=== PATIENT | female | born 1985 | race African-American/Black ===

== ENCOUNTER 2016-10-06 13:24 | Emergency (ER) | payer OTHER ==
[2016-10-06 13:30] VITALS: BP 145/82; BMI 42.0
--- NOTE | 2016-10-06 15:33 | DR.GENAD ---
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 She also states that she has a toothache on the right lower side. Chief Complaint:: HEADACHE WITH DIZZINESS NOTED WHILE AT WORK. Self Treatment fo Chief Complaint: GET TEETH PULLED ON FRIDAY AND IT MAKES MY HEAD HURT. I HAVE A COLD ALSO. - Source History Provided: Patient - Mode of Arrival Mode of Arrival: Ambulatory - Timing Onset of Chief Complaint: 10/06/16 PMH - PMH Past Medical History: Yes Past Medical History: Anxiety Past Surgical History: Yes Surgical History: - Family History History of Family Medical Conditions: No Family Medical History: Diabetes Mellitus, Hypertension - Social History Type of Tobacco Use: Cigarettes Does any household member use tobacco: No Alcohol Use: None Do you use any recreational Drugs:: No Lives With: Family Lives Where: Home - infectious screening In the last 2 months have you had wt loss of >10#?: NO Have you had fever, night sweats or hemotysis?: No Have you traveled outside the country in the last 6 months?: No Isolation: Standard ROS - Review of Systems Eyes: No Symptoms Reported ENTM: No Symptoms Reported Respiratoy: No Symptoms Reported Cardiovascular: No Symptoms Reported Gastrointestinal/Abdominal: No Symptoms Reported Genitourinary: No Symptoms Reported Neurological: No Symptoms Reported Musculoskeletal: No Symptoms Reported Integumentary: No Symptoms Reported Hematologic/Lymphatic: No Symptoms Reported Endocrine: No Symptoms Reported Psychiatric: No Symptoms Reported All Other Systems: Reviewed and Negative PE - Vital Signs Vitals: Temperature 98 F Pulse Rate 101 Respiratory Rate 20 Blood Pressure [Left Arm] 148/74 Blood Pressure 145/82 O2 Sat by Pulse Oximetry 95 - General Limitations: No Limitations General Appearance: Alert, In No Apparent Distress - Head Head Exam: Normal Inspection, Atraumatic - Eyes Eye exam: Normal Appearance, PERRL, EOMI - ENT ENT Exam: Normal Exam, Other (tooth #5 small cavity and tooth#28 increased spacing) External Ear Exam: Normal External Inspection TM/Canal Exam: Bilateral Normal Nose Exam: Normal Nose Exam Mouth Exam: Normal Inspection Throat Exam: Normal Inspection - Neck Neck Exam: Normal Inspection, Full ROM - Chest Chest Inspection: Normal Inspection - Respiratory Respiratory Exam: Normal Lung Sounds Bilat Respiratory Exam: Bilateral Clear to Auscultation - Cardiovascular Cardiovascular Exam: Regular Rate - Abdominal Exam Abdominal Exam: Normal Inspection, Soft Abdominal Tenderness: negative: RUQ, RLQ, LUQ, LLQ, Epigastrium, Suprapubic, Diffuse, Mild, Moderate, Severe, Other - Extremities Extremities Exam: Normal Inspection, Full ROM - Back Back Exam: Normal Inspection, Full ROM - Neurologic Neurological Exam: Alert, Oriented X3, CN II-XII Intact - Psychiatric Psychiatric Exam: Normal Affect, Normal Mood - Skin Skin Exam: Warm, Dry, Intact ROR - Labs Reviewed Result Diagrams: 10/06/16 16:00 10/06/16 16:30 Laboratory: WBC 12.7 X10^3/uL (3.6-10.0) H 10/06/16 16:00 RBC 5.45 X10^6/uL (3.5-5.4) H 10/06/16 16:00 Hgb 15.2 g/dL (12.0-16.0) 10/06/16 16:00 Hct 42.8 % (36.0-47.0) 10/06/16 16:00 MCV 78.6 fL (80.0-100.0) L 10/06/16 16:00 MCH 27.9 pg (27.0-34.0) 10/06/16 16:00 MCHC 35.4 g/dL (33.0-35.0) H 10/06/16 16:00 RDW 14.6 % (11.6-16.5) 10/06/16 16:00 Plt Count 301 X10^3/uL (150.0-450.0) 10/06/16 16:00 MPV 8.8 fL (7.4-11.0) 10/06/16 16:00 Neut % 65.4 % (42.0-75.0) 10/06/16 16:00 Lymph % 26.3 % (21.0-51.0) 10/06/16 16:00 [place] % 6.5 % (0.0-13.0) 10/06/16 16:00 Eos % 0.9 % (0.9-2.9) 10/06/16 16:00 Baso % 0.9 % (0.2-1.0) 10/06/16 16:00 Neut # 8.3 x10^3/uL (2.2-4.8) H 10/06/16 16:00 Lymph # 3.3 X10^3/uL (1.3-2.9) H 10/06/16 16:00 [place] # 0.8 x10^3/uL (0.3-0.8) 10/06/16 16:00 Eos # 0.1 x10^3/uL (0.0-0.2) 10/06/16 16:00 Baso # 0.1 X10^3/uL (0.0-0.1) 10/06/16 16:00 Absolute Nucleated RBC 0.1 /100WBC 10/06/16 16:00 Sodium 139 mmol/L (136-145) 10/06/16 16:30 Corrected Sodium TNP 10/06/16 16:30 Potassium 4.1 mmol/L (3.5-5.1) 10/06/16 16:30 Chloride 104 mmol/L (98-107) 10/06/16 16:30 Carbon Dioxide 27.3 mmol/L (21-32) 10/06/16 16:30 BUN 12 mg/dL (7-18) 10/06/16 16:30 Creatinine 0.83 mg/dL (0.55-1.02) 10/06/16 16:30 Est GFR (MDRD) Af Amer > 60 (>60) 10/06/16 16:30 Est GFR (MDRD) Non-Af > 60 (>60) 10/06/16 16:30 Glucose 92 mg/dL (65-99) 10/06/16 16:30 Calcium 8.3 mg/dL (8.5-10.1) L 10/06/16 16:30 Specimen Type Clean catch urine 10/06/16 16:38 Urine Color Yellow (YELLOW) 10/06/16 16:38 Urine Appearance Slightly hazy (CLEAR) 10/06/16 16:38 Urine pH 6.0 (5.0 - 8.0) 10/06/16 16:38 Ur Specific [place] 1.020 (1.000-1.030) 10/06/16 16:38 Urine Protein Negative (NEGATIVE) 10/06/16 16:38 Urine Glucose (UA) Negative (NEGATIVE) 10/06/16 16:38 Urine Ketones Negative (NEGATIVE) 10/06/16 16:38 Urine Occult Blood 1+ (NEGATIVE) 10/06/16 16:38 Urine Nitrite Negative (NEGATIVE) 10/06/16 16:38 Urine Bilirubin Negative (NEGATIVE) 10/06/16 16:38 Urine Urobilinogen 2+ (NORMAL) 10/06/16 16:38 Ur Leukocyte Esterase Negative (NEGATIVE) 10/06/16 16:38 Urine RBC 0 - 3 /HPF (NEGATIVE) 10/06/16 16:38 Urine WBC Rare /HPF (NEGATIVE) 10/06/16 16:38 Ur Squamous Epith Cells Many /HPF (NEGATIVE) 10/06/16 16:38 Urine Bacteria Trace /HPF (NEGATIVE) 10/06/16 16:38 Ur Culture Indicated? No/not indicated 10/06/16 16:38 - Diagnosis Discharge Problem: Toothache, Dehydration - Discharge Plan Condition: Stable - Follow ups/Referrals Follow ups/Referrals: NFD,None [Primary Care Provider] - 3 days - Instructions
[2016-10-06] MEDS ORDERED: TORADOL 60 MG VIAL IM ONE (15:36)
[2016-10-06] MEDS ORDERED: TORADOL 60 MG VIAL ONE (15:39)
[2016-10-06] MEDS ORDERED: NS 1000 ML 1,000 ML IV ONE (15:42)
[2016-10-06] MEDS ORDERED: NS 1000 ML 1,000 ML ONE (15:46)
[2016-10-06 16:16] LABS: BASOPHILS # (AUTO) 0.1 X10^3/uL (0.0-0.1); BASOPHILS % (AUTO) 0.9 % (0.2-1.0); EOSINOPHILS # (AUTO) 0.1 x10^3/uL (0.0-0.2); EOSINOPHILS % (AUTO) 0.9 % (0.9-2.9); HEMATOCRIT 42.8 % (36.0-47.0); HEMOGLOBIN 15.2 g/dL (12.0-16.0); LYMPHOCYTES # (AUTO) 3.3 X10^3/uL (1.3-2.9); LYMPHOCYTES % (AUTO) 26.3 % (21.0-51.0); MEAN CORPUSCULAR HEMOGLOBIN 27.9 pg (27.0-34.0); MEAN CORPUSCULAR HGB CONC 35.4 g/dL (33.0-35.0); MEAN CORPUSCULAR VOLUME 78.6 fL (80.0-100.0); MEAN PLATELET VOLUME 8.8 fL (7.4-11.0); MONOCYTES # (AUTO) 0.8 x10^3/uL (0.3-0.8); MONOCYTES % (AUTO) 6.5 % (0.0-13.0); NEUTROPHILS # (AUTO) 8.3 x10^3/uL (2.2-4.8); NEUTROPHILS % (AUTO) 65.4 % (42.0-75.0); PLATELET COUNT 301 X10^3/uL (150.0-450.0); RED BLOOD COUNT 5.45 X10^6/uL (3.5-5.4); RED CELL DISTRIBUTION WIDTH 14.6 % (11.6-16.5); WHITE BLOOD COUNT 12.7 X10^3/uL (3.6-10.0)
[2016-10-06 16:45] LABS: BLOOD UREA NITROGEN 12 mg/dL (7-18); CALCIUM 8.3 mg/dL (8.5-10.1); CARBON DIOXIDE 27.3 mmol/L (21-32); CHLORIDE 104 mmol/L (98-107); CREATININE 0.83 mg/dL (0.55-1.02); GLUCOSE 92 mg/dL (65-99); SODIUM 139 mmol/L (136-145); eGFR BLACK RACES > 60 (>60); eGFR NON BLACK RACES > 60 (>60)
[2016-10-06 16:57] LABS: BILIRUBIN,URINE NEGATIVE (NEGATIVE); BLOOD/HEMOGLOBIN,URINE 1+ (NEGATIVE); GLUCOSE, URINE NEGATIVE (NEGATIVE); KETONES,URINE NEGATIVE (NEGATIVE); LEUKOCYTE ESTERASE ,URINE NEGATIVE (NEGATIVE); NITRITES,URINE NEGATIVE (NEGATIVE); PROTEIN,URINE NEGATIVE (NEGATIVE); UROBILINOGEN,URINE 2+ (NORMAL)
[2016-10-06 17:06] LABS: APPEARANCE,URINE SLIGHTLY HAZY (CLEAR); COLOR,URINE YELLOW (YELLOW)
[2016-10-06 17:07] LABS: RBC,URINE 0 - 3 /HPF (NEGATIVE)
[2016-10-06 17:08] LABS: BACTERIA,URINE TRACE /HPF (NEGATIVE); SQUAMOUS EPITHELIAL CELL,UR MANY /HPF (NEGATIVE)
== END 2016-10-06 17:25 | disposition home or self-care (01) ==
LOC: ER 13:34
DX: E86.0 Dehydration (principal); K08.89 Other specified disorders of teeth and supporting structures
CPT/HCPCS: 36415; 80048; 81001; 85025; 96365; 96372; 99283; A4222; J1885

== ENCOUNTER 2016-11-17 15:55 | Emergency (ER) | payer OTHER ==
[2016-11-17 16:05] VITALS: BP 138/104; BMI 41.0
[2016-11-17] MEDS ORDERED: NS 1000 ML 1,000 ML IV ONE (16:57)
[2016-11-17] MEDS ORDERED: ZOFRAN INJ 4 MG VIAL IVP ONE (16:57)
--- NOTE | 2016-11-17 16:57 | DR.GENAD ---
HPI - PCP Primary Care Physician: NFD - Complaint/Symptoms Chief Complaint Doctors Comments: Patient states that she had a mixed drink on last night and every since she has had vomiting through out the night. Admis to vomiting x four. Chief Complaint:: PATIENT HAS BEEN VOMITING SINCE THIS MORNING. - Source History Provided: Patient - Mode of Arrival Mode of Arrival: Ambulatory - Timing Onset of Chief Complaint: 11/17/16 PMH - PMH Past Medical History: Yes Past Medical History: Anxiety Past Surgical History: Yes Surgical History: - Family History History of Family Medical Conditions: Yes Family Medical History: Diabetes Mellitus, Hypertension - Social History Does patient currently use any type of tobacco product: Yes Have you used tobacco products in the last 12 months: Yes Type of Tobacco Use: Cigarettes Does any household member use tobacco: No Alcohol Use: Occasionally Do you use any recreational Drugs:: No Lives With: Family Lives Where: Home - infectious screening In the last 2 months have you had wt loss of >10#?: NO Have you had fever, night sweats or hemotysis?: No Have you traveled outside the country in the last 6 months?: No Isolation: Standard ROS - Review of Systems Eyes: No Symptoms Reported ENTM: No Symptoms Reported Respiratoy: No Symptoms Reported Cardiovascular: No Symptoms Reported Gastrointestinal/Abdominal: Nausea, Vomiting Genitourinary: No Symptoms Reported Neurological: No Symptoms Reported Musculoskeletal: No Symptoms Reported Integumentary: No Symptoms Reported Hematologic/Lymphatic: No Symptoms Reported Endocrine: No Symptoms Reported Psychiatric: No Symptoms Reported All Other Systems: Reviewed and Negative PE - Vital Signs Vitals: Temperature 98.6 F Pulse Rate 97 Respiratory Rate 20 Blood Pressure [Left Arm] 148/74 Blood Pressure 138/104 O2 Sat by Pulse Oximetry 99 - General Limitations: No Limitations General Appearance: Alert, In No Apparent Distress - Head Head Exam: Normal Inspection, Atraumatic - Eyes Eye exam: Normal Appearance, PERRL, EOMI - ENT ENT Exam: Normal Exam, Mucous Membranes Dry External Ear Exam: Normal External Inspection TM/Canal Exam: Bilateral Normal Nose Exam: Normal Nose Exam Mouth Exam: Normal Inspection Throat Exam: Normal Inspection - Neck Neck Exam: Normal Inspection - Chest Chest Inspection: Normal Inspection - Respiratory Respiratory Exam: Normal Lung Sounds Bilat Respiratory Exam: Bilateral Clear to Auscultation - Cardiovascular Cardiovascular Exam: Regular Rate, Normal Rhythm - Abdominal Exam Abdominal Exam: Normal Inspection Abdominal Tenderness: negative: RUQ, RLQ, LUQ, LLQ, Epigastrium, Suprapubic, Diffuse, Mild, Moderate, Severe, Other - Extremities Extremities Exam: Normal Inspection, Full ROM - Back Back Exam: Normal Inspection, Full ROM - Neurologic Neurological Exam: Alert, Oriented X3, CN II-XII Intact - Psychiatric Psychiatric Exam: Normal Affect - Skin Skin Exam: Warm, Dry, Intact ROR - Labs Reviewed Result Diagrams: 11/17/16 17:10 11/17/16 17:10 Laboratory: WBC 14.0 X10^3/uL (3.6-10.0) H 11/17/16 17:10 RBC 5.36 X10^6/uL (3.5-5.4) 11/17/16 17:10 Hgb 15.1 g/dL (12.0-16.0) 11/17/16 17:10 Hct 43.0 % (36.0-47.0) 11/17/16 17:10 MCV 80.2 fL (80.0-100.0) 11/17/16 17:10 MCH 28.1 pg (27.0-34.0) 11/17/16 17:10 MCHC 35.1 g/dL (33.0-35.0) H 11/17/16 17:10 RDW 15.1 % (11.6-16.5) 11/17/16 17:10 Plt Count 354 X10^3/uL (150.0-450.0) 11/17/16 17:10 MPV 7.7 fL (7.4-11.0) 11/17/16 17:10 Neut % 75.4 % (42.0-75.0) H 11/17/16 17:10 Lymph % 17.3 % (21.0-51.0) L 11/17/16 17:10 [place] % 5.8 % (0.0-13.0) 11/17/16 17:10 Eos % 0.6 % (0.9-2.9) L 11/17/16 17:10 Baso % 0.9 % (0.2-1.0) 11/17/16 17:10 Neut # 10.5 x10^3/uL (2.2-4.8) H 11/17/16 17:10 Lymph # 2.4 X10^3/uL (1.3-2.9) 11/17/16 17:10 [place] # 0.8 x10^3/uL (0.3-0.8) 11/17/16 17:10 Eos # 0.1 x10^3/uL (0.0-0.2) 11/17/16 17:10 Baso # 0.1 X10^3/uL (0.0-0.1) 11/17/16 17:10 Absolute Nucleated RBC 0.1 /100WBC 11/17/16 17:10 Sodium 142 mmol/L (136-145) 11/17/16 17:10 Corrected Sodium TNP 11/17/16 17:10 Potassium 3.9 mmol/L (3.5-5.1) 11/17/16 17:10 Chloride 106 mmol/L (98-107) 11/17/16 17:10 Carbon Dioxide 28.7 mmol/L (21-32) 11/17/16 17:10 BUN 10 mg/dL (7-18) 11/17/16 17:10 Creatinine 0.77 mg/dL (0.55-1.02) 11/17/16 17:10 Est GFR (MDRD) Af Amer > 60 (>60) 11/17/16 17:10 Est GFR (MDRD) Non-Af > 60 (>60) 11/17/16 17:10 Glucose 91 mg/dL (65-99) 11/17/16 17:10 Calcium 8.0 mg/dL (8.5-10.1) L 11/17/16 17:10 Corrected Calcium TNP 11/17/16 17:10 Total Bilirubin 0.50 mg/dL (0.2-1.0) 11/17/16 17:10 AST 16 Units/L (15-37) 11/17/16 17:10 ALT 30 Units/L (12-78) 11/17/16 17:10 Alkaline Phosphatase 91 Units/L (46-116) 11/17/16 17:10 Total Protein 7.6 g/dL (6.4-8.2) 11/17/16 17:10 Albumin 3.5 g/dL (3.4-5.0) 11/17/16 17:10 Globulin 4.1 g/dL (2.5-4.5) 11/17/16 17:10 Albumin/Globulin Ratio 0.9 Ratio (1.1-2.1) L 11/17/16 17:10 Specimen Type Clean catch urine 11/17/16 17:02 Urine Color Yellow (YELLOW) 11/17/16 17:02 Urine Appearance Slightly hazy (CLEAR) 11/17/16 17:02 Urine pH 8.0 (5.0 - 8.0) 11/17/16 17:02 Ur Specific [place] 1.015 (1.000-1.030) 11/17/16 17:02 Urine Protein Negative (NEGATIVE) 11/17/16 17:02 Urine Glucose (UA) Negative (NEGATIVE) 11/17/16 17:02 Urine Ketones Negative (NEGATIVE) 11/17/16 17:02 Urine Occult Blood Negative (NEGATIVE) 11/17/16 17:02 Urine Nitrite Negative (NEGATIVE) 11/17/16 17:02 Urine Bilirubin Negative (NEGATIVE) 11/17/16 17:02 Urine Urobilinogen Normal (NORMAL) 11/17/16 17:02 Ur Leukocyte Esterase 1+ (NEGATIVE) 11/17/16 17:02 Urine RBC Negative /HPF (NEGATIVE) 11/17/16 17:02 Urine WBC 0 - 2 /HPF (NEGATIVE) 11/17/16 17:02 Ur Squamous Epith Cells Many /HPF (NEGATIVE) 11/17/16 17:02 Urine Bacteria Negative /HPF (NEGATIVE) 11/17/16 17:02 Ur Culture Indicated? No/not indicated 11/17/16 17:02 - Diagnosis Discharge Problem: Vomiting alone Qualifiers: Vomiting type: unspecified Vomiting Intractability: non-intractable Qualified Code(s): R11.11 - Vomiting without nausea - Discharge Plan Condition: Stable - Follow ups/Referrals Follow ups/Referrals: NFD,None [Primary Care Provider] - 3 days - Instructions
[2016-11-17] MEDS ORDERED: ZOFRAN INJ 4 MG VIAL ONE (16:59)
[2016-11-17] MEDS ORDERED: NS 1000 ML 1,000 ML ONE (16:59)
[2016-11-17 17:18] LABS: BILIRUBIN,URINE NEGATIVE (NEGATIVE); BLOOD/HEMOGLOBIN,URINE NEGATIVE (NEGATIVE); GLUCOSE, URINE NEGATIVE (NEGATIVE); KETONES,URINE NEGATIVE (NEGATIVE); LEUKOCYTE ESTERASE ,URINE 1+ (NEGATIVE); NITRITES,URINE NEGATIVE (NEGATIVE); PROTEIN,URINE NEGATIVE (NEGATIVE); UROBILINOGEN,URINE NORMAL (NORMAL)
[2016-11-17 17:18] LABS: BASOPHILS # (AUTO) 0.1 X10^3/uL (0.0-0.1); BASOPHILS % (AUTO) 0.9 % (0.2-1.0); EOSINOPHILS # (AUTO) 0.1 x10^3/uL (0.0-0.2); EOSINOPHILS % (AUTO) 0.6 % (0.9-2.9); HEMOGLOBIN 15.1 g/dL (12.0-16.0); LYMPHOCYTES # (AUTO) 2.4 X10^3/uL (1.3-2.9); LYMPHOCYTES % (AUTO) 17.3 % (21.0-51.0); MEAN CORPUSCULAR HEMOGLOBIN 28.1 pg (27.0-34.0); MEAN CORPUSCULAR HGB CONC 35.1 g/dL (33.0-35.0); MEAN CORPUSCULAR VOLUME 80.2 fL (80.0-100.0); MEAN PLATELET VOLUME 7.7 fL (7.4-11.0); MONOCYTES # (AUTO) 0.8 x10^3/uL (0.3-0.8); MONOCYTES % (AUTO) 5.8 % (0.0-13.0); NEUTROPHILS # (AUTO) 10.5 x10^3/uL (2.2-4.8); NEUTROPHILS % (AUTO) 75.4 % (42.0-75.0); PLATELET COUNT 354 X10^3/uL (150.0-450.0); RED BLOOD COUNT 5.36 X10^6/uL (3.5-5.4); RED CELL DISTRIBUTION WIDTH 15.1 % (11.6-16.5)
[2016-11-17 17:22] LABS: APPEARANCE,URINE SLIGHTLY HAZY (CLEAR); COLOR,URINE YELLOW (YELLOW)
[2016-11-17 17:25] LABS: BACTERIA,URINE NEGATIVE /HPF (NEGATIVE); RBC,URINE NEGATIVE /HPF (NEGATIVE); SQUAMOUS EPITHELIAL CELL,UR MANY /HPF (NEGATIVE)
[2016-11-17 17:30] LABS: ALANINE AMINOTRANSFERASE 30 Units/L (12-78); ALBUMIN 3.5 g/dL (3.4-5.0); ALKALINE PHOSPHATASE 91 Units/L (46-116); ASPARTATE AMINO TRANSFERASE 16 Units/L (15-37); BLOOD UREA NITROGEN 10 mg/dL (7-18); CARBON DIOXIDE 28.7 mmol/L (21-32); CHLORIDE 106 mmol/L (98-107); CREATININE 0.77 mg/dL (0.55-1.02); GLUCOSE 91 mg/dL (65-99); SODIUM 142 mmol/L (136-145); TOTAL PROTEIN 7.6 g/dL (6.4-8.2); eGFR BLACK RACES > 60 (>60); eGFR NON BLACK RACES > 60 (>60)
== END 2016-11-17 18:46 | disposition home or self-care (01) ==
LOC: ER 16:24
DX: R11.11 Vomiting without nausea (principal)
CPT/HCPCS: 36415; 80053; 81001; 85025; 96365; 96374; 99282; 99283; A4222; J2405

== ENCOUNTER 2016-12-11 08:24 | Emergency (ER) | payer OTHER ==
[2016-12-11 08:27] VITALS: BP 106/73; BMI 42.0
--- NOTE | 2016-12-11 08:54 | DR.GENAD ---
HPI - PCP Primary Care Physician: nfd - HPI Comment HPI Comment: WORSE TO DAY. FEVER AT HOME. MED TAKEN SO FAR NOT HELPING. - Complaint/Symptoms Chief Complaint Doctors Comments: COLD COUGH CONGESTION, HEADACHE AND SINUS PRESSURE TIMES 2 DAYS. Chief Complaint:: [facility] - Nurses notes reviewed Nurses Notes Review: Yes - Source History Provided: Patient - Mode of Arrival Mode of Arrival: Ambulatory - Timing Onset of Chief Complaint: 12/09/16 Came on: Suddenly - Duration Duration: Constant Duration: Days - Severity Severity: Moderate PMH - PMH Past Medical History: Yes Past Medical History: Anxiety Past Surgical History: Yes Surgical History: - Family History History of Family Medical Conditions: No Family Medical History: Diabetes Mellitus, Hypertension - Social History Does patient currently use any type of tobacco product: Yes Have you used tobacco products in the last 12 months: Yes Type of Tobacco Use: Cigarettes How many years tobacco product used: 10 Does any household member use tobacco: No Alcohol Use: None Do you use any recreational Drugs:: No Lives With: Family Lives Where: Home - infectious screening In the last 2 months have you had wt loss of >10#?: NO Have you had fever, night sweats or hemotysis?: No Have you traveled outside the country in the last 6 months?: No Isolation: Standard ROS - Review of Systems Constitutional: Fever. negative: Chills Eyes: No Symptoms Reported ENTM: See HPI, Nose Discharge, Nose Congestion, Throat Pain. negative: Ear Pain Respiratoy: Productive Cough. negative: Short of Breath, Wheezing, Hemoptysis Cardiovascular: No Symptoms Reported Gastrointestinal/Abdominal: No Symptoms Reported Genitourinary: No Symptoms Reported Neurological: No Symptoms Reported Musculoskeletal: Muscle Pain Integumentary: No Symptoms Reported Hematologic/Lymphatic: No Symptoms Reported Endocrine: No Symptoms Reported All Other Systems: Reviewed and Negative PE - Vital Signs Vitals: Temperature 98.7 F Pulse Rate 90 Respiratory Rate 16 Blood Pressure [Left Arm] 148/74 Blood Pressure 106/73 O2 Sat by Pulse Oximetry 99 - General Limitations: No Limitations General Appearance: Alert - Head Head Exam: Normal Inspection - Eyes Eye exam: Normal Appearance - ENT ENT Exam: Normal External Ear Exam External Ear Exam: Normal External Inspection TM/Canal Exam: Bilateral Bulging Nose Exam: Normal Nose Exam Mouth Exam: Normal Inspection Throat Exam: Tonsillar Erythema - Neck Neck Exam: Trachea Midline - Chest Chest Inspection: Symmetric Chest Wall Rise - Respiratory Respiratory Exam: Normal Lung Sounds Bilat Respiratory Exam: Bilateral Clear to Auscultation - Cardiovascular Cardiovascular Exam: Regular Rate, Normal Rhythm, Normal Heart Sounds - Abdominal Exam Abdominal Exam: Normal Bowel Sounds, Soft. negative: Tenderness - Extremities Extremities Exam: Normal Inspection - Back Back Exam: Normal Inspection - Neurologic Neurological Exam: Alert, Oriented X3 - Psychiatric Psychiatric Exam: Normal Affect, Normal Mood - Skin Skin Exam: Normal Color MDM - Differential Diagnosis Differential Diagnosis: SINUSITIS, BRONCHITIS, URI, Course - Treatment Treatment: SEE ORDERS. - Education/Counseling Education/Counseling: Patient, Education Educated On: Treatment, Diagnosis, Needs for Follow Up - Diagnosis Discharge Problem: Bronchitis, Sinusitis - Discharge Plan Disposition: 01 HOME, SELF-CARE Condition: Stable Prescriptions: Azithromycin [ZITHROMAX Tab 250 mg *] 1 dose PO DAILY #6 tab Benzonatate [TESSALON PERLES *] 200 mg PO TID PRN #30 cap PRN Reason: Cough Cetirizine HCl [Zyrtec Tab 10 mg] 10 mg PO DAILY #30 tab - Follow ups/Referrals Follow ups/Referrals: NFD,None [Primary Care Provider] - 3 days - Instructions Instructions: Sinusitis, Adult, [id number], Acute Bronchitis, [id number] Additional Instructions: RETURN TO ED IF WORSE.
== END 2016-12-11 09:08 | disposition home or self-care (01) ==
LOC: ER 08:34
DX: J40 Bronchitis, not specified as acute or chronic (principal); J32.9 Chronic sinusitis, unspecified; Z72.0 Tobacco use
CPT/HCPCS: 99281; 99282

== ENCOUNTER 2016-12-27 07:58 | Emergency (ER) | payer OTHER ==
[2016-12-27 08:02] VITALS: BP 121/80; BMI 35.2
--- NOTE | 2016-12-27 08:28 | DR.GENAD ---
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 She admits to low back pain. Denies trauma. Chief Complaint:: PATIENT STATED THAT HER BACK HAS BEEN ACHING SINCE THIS MORNING. PATIENT STARTED A NEW JOB AND THINKS SHE MIGHT HAVE PULLED A MUSCLE. - Source History Provided: Patient - Mode of Arrival Mode of Arrival: Ambulatory - Timing Onset of Chief Complaint: 12/27/16 PMH - PMH Past Medical History: Yes Past Medical History: Anxiety Past Surgical History: Yes Surgical History: - Family History History of Family Medical Conditions: Yes Family Medical History: Diabetes Mellitus, Hypertension - Social History Does patient currently use any type of tobacco product: Yes Have you used tobacco products in the last 12 months: Yes Type of Tobacco Use: Cigarettes Does any household member use tobacco: No Alcohol Use: None Do you use any recreational Drugs:: No Lives With: Family Lives Where: Home - infectious screening In the last 2 months have you had wt loss of >10#?: NO Have you had fever, night sweats or hemotysis?: No Have you traveled outside the country in the last 6 months?: No Isolation: Standard ROS - Review of Systems Eyes: No Symptoms Reported ENTM: No Symptoms Reported Respiratoy: No Symptoms Reported Cardiovascular: No Symptoms Reported Gastrointestinal/Abdominal: No Symptoms Reported Genitourinary: No Symptoms Reported Neurological: No Symptoms Reported Musculoskeletal: No Symptoms Reported Integumentary: Rash (chest below breasts ) Hematologic/Lymphatic: No Symptoms Reported Endocrine: No Symptoms Reported Psychiatric: No Symptoms Reported All Other Systems: Reviewed and Negative PE - Vital Signs Vitals: Temperature 98.7 F Pulse Rate 94 Respiratory Rate 20 Blood Pressure [Left Arm] 148/74 Blood Pressure 121/80 O2 Sat by Pulse Oximetry 99 - General Limitations: No Limitations General Appearance: Alert - Head Head Exam: Normal Inspection, Atraumatic - Eyes Eye exam: Normal Appearance, PERRL, EOMI - ENT ENT Exam: Normal Exam External Ear Exam: Normal External Inspection TM/Canal Exam: Bilateral Normal Nose Exam: Normal Nose Exam Mouth Exam: Normal Inspection, Drooling Throat Exam: Normal Inspection - Neck Neck Exam: Normal Inspection - Chest Chest Inspection: Rash (Bilateral erythematous macular rash below the breasts secondary to support) - Respiratory Respiratory Exam: Normal Lung Sounds Bilat Respiratory Exam: Bilateral Clear to Auscultation - Cardiovascular Cardiovascular Exam: Regular Rate - Abdominal Exam Abdominal Exam: Normal Inspection Abdominal Tenderness: negative: RUQ, RLQ, LUQ, LLQ, Epigastrium, Suprapubic, Diffuse, Mild, Moderate, Severe, Other - Extremities Extremities Exam: Normal Inspection, Full ROM - Back Back Exam: Normal Inspection, Tenderness (mid lower back), (R) Straight Leg Raise (negative), (L) Straight Leg Raise (negative) - Neurologic Neurological Exam: Alert, Oriented X3, CN II-XII Intact - Psychiatric Psychiatric Exam: Normal Affect - Skin Skin Exam: Warm, Dry, Intact - Diagnosis Discharge Problem: Muscle soreness - Discharge Plan Condition: Stable - Follow ups/Referrals Follow ups/Referrals: NFD,None [Primary Care Provider] - 3 days - Instructions
== END 2016-12-27 08:44 | disposition home or self-care (01) ==
LOC: ER 08:10
DX: M79.1 Myalgia (principal)
CPT/HCPCS: 99281; 99282

== ENCOUNTER 2017-03-19 14:39 | Emergency (ER) | payer OTHER ==
[2017-03-19 14:42] VITALS: BP 116/71
[2017-03-19] MEDS ORDERED: TORADOL 60 MG VIAL IM ONE (15:10)
--- NOTE | 2017-03-19 15:16 | DR.FBACK ---
HPI - Time Seen Time seen: 15:02 - PCP Primary Care Physician: NFD - Complaint Chief Complaint Doctor Comments: She came in with comlain of low back pain and right knee pain. this was onset upon falling at home earlier today. She had taken some Tylenol but has no relief of pain. She denies LOC. She fell because she missed a step as she was coming down steps at home. THe LBP is intermittent and does not radiate. Chief Complaint:: PT. STATES SHE FELL AT HOME THIS MORNING HURTING HER LOWER BACK AND RIGHT KNEE. PT. FELL ON [employer]. - Reviewed Nurses Notes Review: Yes - Source History Provided: Patient - Mode of Arrival Mode of Arrival: Ambulatory - Timing Onset of Chief Complaint: 03/19/17 - Location Back Pain Location: Lumbar Radiation To: None - Severity Severity: Moderate - Quality Quality: Sharp - Context Onset: Fall Circumstance: Accident - Modifying Factors Worsened By: None - Associated Signs and Symptoms Back Pain Symptoms: None Numbness: None PMH - PMH Past Medical History: Yes Past Medical History: Anxiety Past Surgical History: Yes Surgical History: - Family History History of Family Medical Conditions: Yes Family Medical History: Diabetes Mellitus, Hypertension - Social History Does patient currently use any type of tobacco product: Yes Have you used tobacco products in the last 12 months: Yes Type of Tobacco Use: Cigarettes Does any household member use tobacco: No Alcohol Use: None Do you use any recreational Drugs:: No Lives With: Family Lives Where: Home - infectious screening In the last 2 months have you had wt loss of >10#?: NO Have you had fever, night sweats or hemotysis?: No Have you traveled outside the country in the last 6 months?: No Isolation: Standard ROS - Review of Systems Constitutional: No Symptoms Reported Eyes: No Symptoms Reported ENTM: No Symptoms Reported Respiratoy: No Symptoms Reported Cardiovascular: No Symptoms Reported Gastrointestinal/Abdominal: No Symptoms Reported Neurological: No Symptoms Reported Musculoskeletal: Back Pain, Knee Integumentary: No Symptoms Reported Hematologic/Lymphatic: No Symptoms Reported Endocrine: No Symptoms Reported Psychiatric: No Symptoms Reported All Other Systems: Reviewed and Negative PE - Vitals Vital Signs: Temp Pulse Resp BP BP Pulse Ox 03/19/17 14:39 97 F L 111 H 18 116/71 95 12/27/16 07:59 121/80 02/26/14 15:38 148/74 - General Limitations: No Limitations General Appearance: Alert, In No Apparent Distress - Head Head Exam: Normal Inspection - Eyes Eye exam: Normal Appearance, PERRL, EOMI - ENT ENT Exam: Normal Exam - Chest Chest Inspection: Normal Inspection - Respiratory Respiratory Exam: Normal Lung Sounds Bilat - Cardiovascular Cardiovascular Exam: Regular Rate, Normal Rhythm - Abdominal Exam Abdominal Exam: Normal Inspection, Normal Bowel Sounds, Soft - Extremities Extremities Exam: Normal Inspection - Back Back Exam: Normal Inspection, Tenderness (Low lumbar region). negative: Full ROM, (R) CVA Tenderness, (L) CVA Tenderness, Muscle Spasm, Paraspinal Tenderness , Vertebral Tenderness, Rashes, (R) Sciatic Notch Tenderness, (L) Sciatic Notch Tendern, (R) Straight Leg Raise, (L) Straight Leg Raise - Neurological Neurological Exam: Alert, Oriented X3, CN II-XII Intact - Psychiatric Psychiatric Exam: Normal Affect, Normal Mood - Diagnosis Discharge Problem: Acute back pain, Contusion of knee, right - Discharge Plan Disposition: HOME, SELF-CARE Condition: Stable - Follow ups/Referrals Follow ups/Referrals: NFD,None [Primary Care Provider] - 3 days - Instructions
[2017-03-19] MEDS ORDERED: TORADOL 60 MG VIAL ONE (15:18)
== END 2017-03-19 15:36 | disposition home or self-care (01) ==
LOC: ER 14:54
DX: M54.5 Low back pain (principal); S80.01XA Contusion of right knee, initial encounter; W19.XXXA Unspecified fall, initial encounter; Y92.009 Unspecified place in unspecified non-institutional (private) residence as the place of occurrence of the external cause
CPT/HCPCS: 96372; 99282; J1885

== ENCOUNTER 2017-08-19 21:52 | Emergency (ER) | payer OTHER ==
[2017-08-19 21:57] VITALS: BP 134/87; BMI 41.0
--- NOTE | 2017-08-19 22:31 | DR.GENAD ---
HPI - PCP Primary Care Physician: brandyn - HPI Comment HPI Comment: PAIN ASSOCIATED WITH SOB AND WEAKNESS. DENIES FEVER OR COUGH. - Complaint/Symptoms Chief Complaint Doctors Comments: CHEST PAIN, LOWER STERNAL NOT RESPONDING TO ANTACID. YESTERDAY, SIMILAR PAIN RESPONDED TO GAS MEDICATION. Chief Complaint:: pt states" I STARTED HURTING YESTERDAY I TOOK A GAS PILL IT WENT AWAY. I STARTED HURTING AGAIN TONIGHT AND I TOOK ONE BUT I'S STILL HURTING UNDER MY RIGHT RIBS AND NECK" - Nurses notes reviewed Nurses Notes Review: Yes - Source History Provided: Patient - Mode of Arrival Mode of Arrival: Ambulatory - Timing Onset of Chief Complaint: 08/18/17 Came on: Suddenly - Duration Duration: Constant Duration: Days - Severity Severity: Moderate PMH - PMH Past Medical History: Yes Past Medical History: Anxiety Past Surgical History: Yes Surgical History: - Family History History of Family Medical Conditions: Yes Family Medical History: Diabetes Mellitus, Hypertension - Social History Does patient currently use any type of tobacco product: No Have you used tobacco products in the last 12 months: No Type of Tobacco Use: None Does any household member use tobacco: No Alcohol Use: None Do you use any recreational Drugs:: No Lives With: Family Lives Where: Home - infectious screening In the last 2 months have you had wt loss of >10#?: NO Have you had fever, night sweats or hemotysis?: No Have you traveled outside the country in the last 6 months?: No Isolation: Standard ROS - Review of Systems Constitutional: No Symptoms Reported Eyes: No Symptoms Reported ENTM: No Symptoms Reported Respiratoy: No Symptoms Reported Cardiovascular: Chest Pain Gastrointestinal/Abdominal: No Symptoms Reported Genitourinary: No Symptoms Reported Neurological: No Symptoms Reported Musculoskeletal: No Symptoms Reported Integumentary: No Symptoms Reported Hematologic/Lymphatic: No Symptoms Reported Endocrine: No Symptoms Reported All Other Systems: Reviewed and Negative PE - Vital Signs Vitals: Temperature 98.9 F Pulse Rate 102 Respiratory Rate 18 Blood Pressure [Left Arm] 148/74 Blood Pressure 134/87 O2 Sat by Pulse Oximetry 98 - General Limitations: No Limitations General Appearance: Alert - Head Head Exam: Normal Inspection - Eyes Eye exam: Normal Appearance - ENT ENT Exam: Normal External Ear Exam External Ear Exam: Normal External Inspection TM/Canal Exam: Bilateral Normal Nose Exam: Normal Nose Exam Mouth Exam: Normal Inspection Throat Exam: Normal Inspection - Neck Neck Exam: Trachea Midline - Chest Chest Inspection: Symmetric Chest Wall Rise - Respiratory Respiratory Exam: Normal Lung Sounds Bilat Respiratory Exam: Bilateral Clear to Auscultation - Cardiovascular Cardiovascular Exam: Regular Rate, Normal Rhythm, Normal Heart Sounds - Abdominal Exam Abdominal Exam: Normal Bowel Sounds, Soft. negative: Tenderness - Extremities Extremities Exam: Normal Inspection - Back Back Exam: Normal Inspection - Neurologic Neurological Exam: Alert, Oriented X3 - Psychiatric Psychiatric Exam: Normal Affect, Normal Mood - Skin Skin Exam: Normal Color MDM - Differential Diagnosis Differential Diagnosis: CHEST PAIN, OR, PE, SINUSITIS, BRONCHITIS, PUD Course - Treatment Treatment: SEE ORDERS. - Education/Counseling Education/Counseling: Patient, Family, Education Educated On: Diagnosis, Needs for Follow Up ROR - Labs Reviewed Laboratory Results Reviewed?: Yes Result Diagrams: 08/19/17 22:50 08/19/17 22:50 Laboratory: WBC 13.6 X10^3/uL (3.6-10.0) H 08/19/17 22:50 RBC 4.94 X10^6/uL (3.5-5.4) 08/19/17 22:50 Hgb 14.3 g/dL (12.0-16.0) 08/19/17 22:50 Hct 40.4 % (36.0-47.0) 08/19/17 22:50 MCV 81.8 fL (80.0-100.0) 08/19/17 22:50 MCH 28.8 pg (27.0-34.0) 08/19/17 22:50 MCHC 35.3 g/dL (33.0-35.0) H 08/19/17 22:50 RDW 13.6 % (11.6-16.5) 08/19/17 22:50 Plt Count 273 X10^3/uL (150.0-450.0) 08/19/17 22:50 MPV 7.9 fL (7.4-11.0) 08/19/17 22:50 Neut % (Auto) 64.5 % (42.0-75.0) 08/19/17 22:50 Lymph % (Auto) 27.0 % (21.0-51.0) 08/19/17 22:50 Knott % (Auto) 5.6 % (0.0-13.0) 08/19/17 22:50 Eos % (Auto) 1.6 % (0.9-2.9) 08/19/17 22:50 Baso % (Auto) 1.3 % (0.2-1.0) H 08/19/17 22:50 Neut # (Auto) 8.7 x10^3/uL (2.2-4.8) H 08/19/17 22:50 Lymph # (Auto) 3.7 X10^3/uL (1.3-2.9) H 08/19/17 22:50 Knott # (Auto) 0.8 x10^3/uL (0.3-0.8) 08/19/17 22:50 Eos # (Auto) 0.2 x10^3/uL (0.0-0.2) 08/19/17 22:50 Baso # (Auto) 0.2 X10^3/uL (0.0-0.1) H 08/19/17 22:50 Absolute Nucleated RBC 0.1 /100WBC 08/19/17 22:50 D-Dimer < 100 ng/mL (0-400) 08/19/17 22:50 Sodium 139 mmol/L (136-145) 08/19/17 22:50 Corrected Sodium TNP 08/19/17 22:50 Potassium 3.8 mmol/L (3.5-5.1) 08/19/17 22:50 Chloride 106 mmol/L (98-107) 08/19/17 22:50 Carbon Dioxide 26.0 mmol/L (21-32) 08/19/17 22:50 BUN 14 mg/dL (7-18) 08/19/17 22:50 Creatinine 0.92 mg/dL (0.55-1.02) 08/19/17 22:50 Est GFR (MDRD) Af Amer > 60 (>60) 08/19/17 22:50 Est GFR (MDRD) Non-Af > 60 (>60) 08/19/17 22:50 Glucose 106 mg/dL (65-99) H 08/19/17 22:50 Calcium 8.7 mg/dL (8.5-10.1) 08/19/17 22:50 Corrected Calcium TNP 08/19/17 22:50 Total Bilirubin 0.20 mg/dL (0.2-1.0) 08/19/17 22:50 AST 9 Units/L (15-37) L 08/19/17 22:50 ALT 19 Units/L (12-78) 08/19/17 22:50 Alkaline Phosphatase 84 Units/L (46-116) 08/19/17 22:50 Creatine Kinase 198 Units/L (26-192) H 08/19/17 22:50 CK-MB (CK-2) < 1.0 ng/mL (0-4.0) 08/19/17 22:50 CK/CKMB % Calc 0.5 % (<4) 08/19/17 22:50 Troponin I < 0.02 ng/mL (0-1.5) 08/19/17 22:50 Total Protein 7.5 g/dL (6.4-8.2) 08/19/17 22:50 Albumin 3.7 g/dL (3.4-5.0) 08/19/17 22:50 Globulin 3.8 g/dL (2.5-4.5) 08/19/17 22:50 Albumin/Globulin Ratio 1.0 Ratio (1.1-2.1) L 08/19/17 22:50 H. pylori IgG Antibody Negative (NEGATIVE) 08/19/17 22:50 - XRAY XRAY Interpreted by: Radiologist XRAY Findings: REPORT DISCUSS WITH PATIENT. - EKG Rhythm: NSR (EKG NOTED) - Diagnosis Discharge Problem: Chest pain Qualifiers: Chest pain type: unspecified Qualified Code(s): R07.9 - Chest pain, unspecified - Discharge Plan Disposition: 01 HOME, SELF-CARE Condition: Stable Prescriptions: Gi Cocktail [LEVSIN/Maalox/Lidoc Visc (GI COCKTAIL) *] 30 ml PO TID PRN #180 ml PRN Reason: Ranitidine HCl [ZANTAC TAB 150 MG *] 150 mg PO BID #60 tab - Follow ups/Referrals Follow ups/Referrals: [facility],None [Primary Care Provider] - 3 days - Instructions Instructions: Chest Pain Observation Additional Instructions: RETURN TO ED IF WORSE.
--- NOTE | 2017-08-19 22:49 | RAD ---
HISTORY: Chest pain Study: Single-view chest Comparison: 02/13/2016 Findings: The trachea is midline. There are low lung volumes which accentuate the cardiac silhouette and centra l interstitial markings. However, there is no acute infiltrate, consolidation, or pleural effusion. T he bony thorax is grossly intact. IMPRESSION: 1. No acute cardiopulmonary process evident Reported By:
[2017-08-19 23:12] LABS: ALANINE AMINOTRANSFERASE 19 Units/L (12-78); ALBUMIN 3.7 g/dL (3.4-5.0); ALKALINE PHOSPHATASE 84 Units/L (46-116); ASPARTATE AMINO TRANSFERASE 9 Units/L (15-37); BLOOD UREA NITROGEN 14 mg/dL (7-18); CALCIUM 8.7 mg/dL (8.5-10.1); CHLORIDE 106 mmol/L (98-107); CREATININE 0.92 mg/dL (0.55-1.02); SODIUM 139 mmol/L (136-145); TOTAL PROTEIN 7.5 g/dL (6.4-8.2); eGFR BLACK RACES > 60 (>60); eGFR NON BLACK RACES > 60 (>60)
[2017-08-19 23:15] LABS: BASOPHILS # (AUTO) 0.2 X10^3/uL (0.0-0.1); BASOPHILS % (AUTO) 1.3 % (0.2-1.0); EOSINOPHILS # (AUTO) 0.2 x10^3/uL (0.0-0.2); EOSINOPHILS % (AUTO) 1.6 % (0.9-2.9); HEMATOCRIT 40.4 % (36.0-47.0); HEMOGLOBIN 14.3 g/dL (12.0-16.0); LYMPHOCYTES # (AUTO) 3.7 X10^3/uL (1.3-2.9); MEAN CORPUSCULAR HEMOGLOBIN 28.8 pg (27.0-34.0); MEAN CORPUSCULAR HGB CONC 35.3 g/dL (33.0-35.0); MEAN CORPUSCULAR VOLUME 81.8 fL (80.0-100.0); MEAN PLATELET VOLUME 7.9 fL (7.4-11.0); MONOCYTES # (AUTO) 0.8 x10^3/uL (0.3-0.8); MONOCYTES % (AUTO) 5.6 % (0.0-13.0); NEUTROPHILS # (AUTO) 8.7 x10^3/uL (2.2-4.8); NEUTROPHILS % (AUTO) 64.5 % (42.0-75.0); PLATELET COUNT 273 X10^3/uL (150.0-450.0); RED BLOOD COUNT 4.94 X10^6/uL (3.5-5.4); RED CELL DISTRIBUTION WIDTH 13.6 % (11.6-16.5); WHITE BLOOD COUNT 13.6 X10^3/uL (3.6-10.0)
[2017-08-19 23:21] LABS: CKMB % 0.5 % (<4); CREATINE KINASE 198 Units/L (26-192); CREATINE KINASE MB < 1.0 ng/mL (0-4.0); TROPONIN I < 0.02 ng/mL (0-1.5)
[2017-08-19] MEDS ORDERED: LEVSIN/MAALOX/LIDOC VISC PO ONE (23:32)
[2017-08-19] MEDS ORDERED: ZANTAC PO ONE ×2 (23:33→23:49)
[2017-08-19] MEDS ORDERED: LEVSIN/MAALOX/LIDOC VISC ONE (23:48)
== END 2017-08-20 | disposition home or self-care (01) ==
LOC: ER 22:01
DX: R07.89 Other chest pain (principal)
CPT/HCPCS: 36415; 71045; 80053; 82550; 82553; 84484; 85025; 85378; 86677; 93005; 93010; 99283